=== PATIENT | male | born 1975 | race Caucasian/White ===

== ENCOUNTER 2018-12-03 12:00 | Emergency (ER) | payer BC ==
--- NOTE | 2018-12-03 12:41 | RAD REPORT ---
EXAM DESCRIPTION: RAD - Chest Single View - 12/03/2018 12:33 pm CLINICAL HISTORY: Chest pain COMPARISON: January 2018 TECHNIQUE: AP portable chest image was obtained 1232 hours . FINDINGS: Lungs are clear. Heart and vasculature are normal. No measurable pleural effusion and no p neumothorax. No acute bony abnormality seen. No acute aortic findings suspected. IMPRESSION: No acute cardiopulmonary process. No significant interval change.
[2018-12-03 12:48] LABS: Absolute Lymphocytes (CBC) 1.7 K/uL (0.7-4.9); Basophils % 0.8 % (0-1.3); Eosinophils % 1.5 % (0-4.4); Hematocrit 50.2 % (39.6-49.0); Lymphocytes % 31.3 % (15.3-44.8); MPV 8.3 fL (7.6-11.3); Monocytes % 7.7 % (3.3-12.3); RBC Red Blood Cell Count 5.38 M/uL (4.33-5.43)
[2018-12-03 13:13] LABS: ALT/SGPT 45 U/L (12-78); AST/SGOT 16 U/L (15-37); Alkaline Phosphatase 132 U/L (45-117); BUN Blood Urea Nitrogen 19 mg/dL (7-18); Bicarbonate 24 mmol/L (21-32); Bilirubin Direct 0.1 mg/dL (0-0.2); Bilirubin Total 0.5 mg/dL (0.2-1.0); Glucose Level 104 mg/dL (74-106); NT PRO-BNP 14 pg/mL (<125); Potassium 3.7 mmol/L (3.5-5.1); Protein, Total 7.4 g/dL (6.4-8.2); Sodium Level 141 mmol/L (136-145); Troponin (Emerg Dept Use Only) < 0.02 ng/mL (0.0-0.045)
--- NOTE | 2018-12-03 15:51 | ER ---
Nurse's Notes [facility] Name: Michael Bailon Age: 43 yrs Sex: Male : 1975 Arrival Date: 12/03/2018 Time: 12:01 Bed 5 Private MD: Diagnosis: Chest pain, unspecified Presentation: 12/03 12:01 Presenting complaint: Patient states: around 6:30 am today, i was sitting on my desk, hj when i felt this chest pain, sharp, tight feeling; reports radiating to back and L side of the body; pain 2/10; denies SOB;. Transition of care: patient was not received from another setting of care. Onset of symptoms was December 03, 2018. Risk Assessment: Do you want to hurt yourself or someone else? Patient reports no desire to harm self or others. Initial Sepsis Screen: Does the patient meet any 2 criteria? No. Patient's initial sepsis screen is negative. Does the patient have a suspected source of infection? No. Patient's initial sepsis screen is negative. Care prior to arrival: None. 12:01 Method Of Arrival: Ambulatory 12:01 Acuity: YARA 3 hj Historical: - Allergies: 12:03 No Known Allergies; hj - PMHx: 12:03 Migraines; hj - PSHx: 12:03 None; hj - Immunization history:: Adult Immunizations up to date. - Social history:: Smoking status: Patient/guardian denies using tobacco. - Family history:: not pertinent. - Ebola Screening: : No symptoms or risks identified at this time. - Hospitalizations: : No recent hospitalization is reported. Screenin:44 Abuse screen: Denies threats or abuse. Denies injuries from another. Nutritional hb screening: No deficits noted. Tuberculosis screening: No symptoms or risk factors identified. Fall Risk None identified. Assessment: 12:30 General: Appears in no apparent distress. well groomed, well developed, well nourished, sg Behavior is calm, cooperative, appropriate for age. Neuro: Level of Consciousness is awake, confused, Oriented to person, Speech clear. Facial symmetry appears normal. Cardiovascular: Heart tones S1 S2 Patient's skin is warm and dry. Chest pain is denied. Respiratory: Airway is patent Respiratory effort is even, unlabored, Respiratory pattern is regular, symmetrical, Breath sounds are coarse. GI: Abdomen is round non-distended, Bowel sounds present X 4 quads. : No signs and/or symptoms were reported regarding the genitourinary system. EENT: No signs and/or symptoms were reported regarding the EENT system. Derm: Skin is pink, warm \T\ dry. Musculoskeletal: No signs and/or symptoms reported regarding the musculoskeletal system. 12:43 Reassessment: pt to void x1. sg 13:30 Reassessment: Patient appears in no apparent distress at this time. No changes from hb previously documented assessment. Patient and/or family updated on plan of care and expected duration. Pain level reassessed. Patient is alert, oriented x 3, equal unlabored respirations, skin warm/dry/pink. 14:30 Reassessment: Patient appears in no apparent distress at this time. Patient and/or hb family updated on plan of care and expected duration. Pain level reassessed. Patient is alert, oriented x 3, equal unlabored respirations, skin warm/dry/pink. Vital Signs: 12:03 BP 135 / 92; Pulse 74; Resp 18; Temp 97.9(O); Pulse Ox 100% on R/A; Weight 124.28 kg; hj Height 5 ft. 11 in. (180.34 cm); Pain 3/10; 13:30 BP 128 / 86; Pulse 72; Resp 17; Pulse Ox 98% on R/A; hb 14:30 BP 116 / 85; Pulse 70; Resp 15; Pulse Ox 100% on R/A; hb 16:00 BP 114 / 84; Pulse 69; Resp 17; Pulse Ox 99% on R/A; Pain 0/10; sg 12:03 Body Mass Index 38.21 (124.28 kg, 180.34 cm) ED Course: 12:01 Patient arrived in ED. hj 12:03 Triage completed. hj 12:05 Arm band placed on right wrist. hj 12:06 Willem Soto MD is Attending Physician. rn 12:12 EKG done, by wastewater technician. reviewed by Willem Soto MD. at1 12:33 X-ray completed. Portable x-ray completed in exam room. Patient tolerated procedure jb2 well. 12:34 XRAY Chest (1 view) In Process Unspecified. EDMS 12:40 Initial lab(s) drawn, by la, sent to lab. Inserted saline lock: 20 gauge in right sg antecubital area, using aseptic technique. Blood collected. Patient maintains SpO2 saturation greater than 95% on room air. 12:43 Krishna La, RN is Primary Nurse. sg 14:25 Repeat lab(s) drawn. by ED staff, sent to lab. sg 14:40 Troponin (emerg Dept Use Only) Sent. hb 14:40 Basic Metabolic Panel Sent. hb 15:49 Esteban Corrales MD is Referral Physician. rn 16:05 Patient has correct armband on for positive identification. Bed in low position. Call sg light in reach. Side rails up X2. phototypesetting equipment monitor on. Pulse ox on. NIBP on. Warm blanket given. Head of bed elevated. 16:05 No provider procedures requiring assistance completed. IV discontinued, intact, sg bleeding controlled, No redness/swelling at site. Pressure dressing applied. Administered Medications: No medications were administered Outcome: 15:50 Discharge ordered by MD. rn 16:05 Discharged to home ambulatory. sg 16:05 Condition: good 16:05 Discharge instructions given to patient, Instructed on discharge instructions, follow up and referral plans. medication usage, safety practices, Demonstrated understanding of instructions, follow-up care, medications, Prescriptions given X 2. 16:10 Patient left the ED. Signatures: Dispatcher [employer] EDMS Krishna La, RN RN Ruel Anguiano Roman, MD MD rn Smirch, Shelby, RN RN Kathy Moore, spring clipper EKG Tat1 Chris Levy RN RN hj Lyndsey Dye RN RN hb
--- NOTE | 2018-12-03 15:51 | EDPHYS ---
Physician Documentation [facility] Name: Michael Bailon Age: 43 yrs Sex: Male : 1975 Arrival Date: 12/03/2018 Time: 12:01 Bed 5 Private MD: ED Physician Willem Soto HPI: 12/03 12:23 This 43 yrs old Male presents to ER via Ambulatory with complaints of Chest rn Pain. 12:23 The patient or guardian reports chest pain that is located primarily in the substernal rn area. 12:24 Onset: this morning. The pain does not radiate. Associated signs and symptoms: rn Pertinent negatives: abdominal pain, cough, diaphoresis, lightheadedness, nausea, near syncope, palpitations, recent travel, shortness of breath, syncope, vomiting. The chest pain is described as a heaviness. Modifying factors: The symptoms are alleviated by nothing. the symptoms are aggravated by nothing. Severity of pain: At its worst the pain was moderate in the emergency department the pain has improved. The patient has experienced similar episodes in the past. Reports intermittent chest pain, pressure/heavy, noticed this morning while at rest, no radiation, + tingling of left arm, had negative stress test 2-3 years ago, reports normally has mild sharp chest pains that come and go, but today felt different. No fever/cough/sob. No tearing/ripping pain. Takes baby aspirin daily since seeing cardiology last. No famhx of cardiac problems at his age.. Historical: - Allergies: 12:03 No Known Allergies; hj - PMHx: 12:03 Migraines; hj - PSHx: 12:03 None; hj - Immunization history:: Adult Immunizations up to date. - Social history:: Smoking status: Patient/guardian denies using tobacco. - Family history:: not pertinent. - Ebola Screening: : No symptoms or risks identified at this time. - Hospitalizations: : No recent hospitalization is reported. ROS: 12:24 Constitutional: Negative for fever, chills, and weight loss, Eyes: Negative for injury, rn pain, redness, and discharge, Neck: Negative for injury, pain, and swelling, Cardiovascular: Negative for palpitations, and edema, Respiratory: Negative for shortness of breath, cough, wheezing, and pleuritic chest pain, Abdomen/GI: Negative for abdominal pain, nausea, vomiting, diarrhea, and constipation, MS/Extremity: Negative for injury and deformity, Skin: Negative for injury, rash, and discoloration, Neuro: Negative for headache, weakness, and seizure. Exam: 12:24 Constitutional: This is a well developed, well nourished patient who is awake, alert, rn and in no acute distress. Head/Face: Normocephalic, atraumatic. Eyes: Pupils equal round and reactive to light, extra-ocular motions intact. Lids and lashes normal. Conjunctiva and sclera are non-icteric and not injected. Cornea within normal limits. Periorbital areas with no swelling, redness, or edema. ENT: MMM Cardiovascular: Regular rate and rhythm. No gallops, murmurs, or rubs. No JVD. No pulse deficits. Respiratory: Lungs have equal breath sounds bilaterally, clear to auscultation. No increased work of breathing, no retractions or nasal flaring. Abdomen/GI: soft, non-tender MS/ Extremity: Pulses equal, no cyanosis. Neurovascular intact. Full, normal range of motion. Equal circumference. Neuro: Awake and alert, GCS 15, normal ROM of extremities and normal strength 12:28 ECG was reviewed by the Attending Physician. rn Vital Signs: 12:03 BP 135 / 92; Pulse 74; Resp 18; Temp 97.9(O); Pulse Ox 100% on R/A; Weight 124.28 kg; hj Height 5 ft. 11 in. (180.34 cm); Pain 3/10; 13:30 BP 128 / 86; Pulse 72; Resp 17; Pulse Ox 98% on R/A; hb 14:30 BP 116 / 85; Pulse 70; Resp 15; Pulse Ox 100% on R/A; hb 16:00 BP 114 / 84; Pulse 69; Resp 17; Pulse Ox 99% on R/A; Pain 0/10; sg 12:03 Body Mass Index 38.21 (124.28 kg, 180.34 cm) hj MDM: 12:06 Patient medically screened. rn 14:15 Differential diagnosis: acute myocardial infarction, acute pericarditis, anxiety, rn coronary artery disease chest wall pain, costochondritis, esophagitis, gastritis, gastroesophageal reflux disease (GERD), pericarditis, pleurisy, pneumonia, pneumothorax, stable angina. The patient was not given aspirin in the Emergency Department. Patient reports taking aspirin within the past 24 hours. STEVE Risk Score: 1 - ASA use in past 7 days, TOTAL SCORE = 1. Data reviewed: vital signs, nurses notes, lab test result(s), EKG, radiologic studies, plain films. Counseling: I had a detailed discussion with the patient and/or guardian regarding: the historical points, exam findings, and any diagnostic results supporting the discharge/admit diagnosis, lab results, radiology results, the need for outpatient follow up, to return to the emergency department if symptoms worsen or persist or if there are any questions or concerns that arise at home. Special discussion: Based on the patient's history, exam, and Dx evaluation, there is no indication for emergent intervention or inpatient Tx. It is understood by the patient/guardian that if the Sx's persist or worsen they need to return immediately for re-evaluation. I discussed with the patient/guardian in detail that at this point there is no indication for admission to the hospital. It is understood, however, that if the symptoms persist or worsen the patient needs to return immediately for re-evaluation. ED course: No further episodes of chest pain while here, first set trop and ECG normal, will repeat and will make them 8 hours after onset. Has seen Dr. Corrales in past, recommend if repeat trop and ecg normal to f/u as outpt for outpt ECHO/stress and further risk stratification.. 15:49 ED course: repeat trop and ecg negative, will dc home. Is calling for cardiology appt rn today.. 12/03 12:23 Order name: Basic Metabolic Panel rn 12/03 12:23 Order name: CBC with Diff; Complete Time: 13:05 rn 12/03 12:23 Order name: LFT's; Complete Time: 14:04 rn 12/03 12:23 Order name: NT PRO-BNP; Complete Time: 14:04 rn 12/03 12:23 Order name: Troponin (emerg Dept Use Only); Complete Time: 14:04 rn 12/03 12:23 Order name: D-Dimer; Complete Time: 14:04 rn 12/03 12:23 Order name: XRAY Chest (1 view); Complete Time: 12:44 rn 12/03 12:23 Order name: EKG; Complete Time: 12:26 rn 12/03 12:23 Order name: Cardiac monitoring; Complete Time: 12:24 rn 12/03 12:23 Order name: EKG - Nurse/Tech; Complete Time: 12:42 rn 12/03 12:23 Order name: IV Saline Lock; Complete Time: 12:24 rn 12/03 12:25 Order name: Basic Metabolic Panel; Complete Time: 14:04 EDMS 12/03 14:13 Order name: Troponin (emerg Dept Use Only); Complete Time: 15:49 rn 12/03 14:14 Order name: EKG; Complete Time: 14:15 rn 12/03 12:23 Order name: Labs collected and sent; Complete Time: 12:24 rn 12/03 12:23 Order name: O2 Per Protocol; Complete Time: 12:24 rn 12/03 12:23 Order name: O2 Sat Monitoring; Complete Time: 12:25 rn 12/03 14:14 Order name: EKG - Nurse/Tech; Complete Time: 14:39 rn EC:28 Rate is 81 beats/min. Rhythm is regular. QRS [place] is Normal. AL interval is normal. QRS rn interval is normal. QT interval is normal. T waves are Normal. No ST changes noted. Clinical impression: NSR w/ Non-specific ST/T Changes and LVH. Interpreted by me. Reviewed by me. Administered Medications: No medications were administered Disposition: 12/03/18 15:50 Discharged to Home. Impression: Chest pain, unspecified. - Condition is Stable. - Discharge Instructions: Nonspecific Chest Pain. - Work release form, Medication Reconciliation Form, Thank You Letter, Antibiotic Education, Prescription Opioid Use form. - Follow up: Esteban Corrales MD; When: As needed; Reason: Recheck today's complaints, Re-evaluation by your physician. - Problem is new. - Symptoms have improved. Signatures: Dispatcher [employer] EDAL Willem Soto MD MD rn Smirch, Shelby, RN RN Chris Levy RN RN Lyndsey Dye RN RN Corrections: (The following items were deleted from the chart) 16:10 15:50 12/03/2018 15:50 Discharged to Home. Impression: Chest pain, unspecified. ss Condition is Stable. Forms are Medication Reconciliation Form, Thank You Letter, Antibiotic Education, Prescription Opioid Use. Follow up: Esteban Corrales; When: As needed; Reason: Recheck today's complaints, Re-evaluation by your physician. Problem is new. Symptoms have improved. rn
--- NOTE | 2018-12-04 14:51 | EKG ---
Test Date: 2018-12-03 Test Time: 14:37:05 Machine Package Sealer: VIN MEASUREMENT RESULTS: Intervals: Rate: 65 WA: 164 QRSD: 100 QT: 396 QTc: 411 [place]: P: 36 WA: 164 QRS: -15 T: 17 INTERPRETIVE STATEMENTS: Normal sinus rhythm Minimal voltage criteria for LVH, may be normal variant Borderline ECG Compared to ECG 12/03/2018 12:08:28 No significant changes Electronically Signed On 12-04-18 14:47:36 CDT by Esteban Corrales
--- NOTE | 2018-12-04 14:52 | EKG ---
Test Date: 2018-12-03 Test Time: 12:08:28 Associate Director Financial Aid: VIN MEASUREMENT RESULTS: Intervals: Rate: 81 ND: 156 QRSD: 100 QT: 382 QTc: 443 [place]: P: 43 ND: 156 QRS: -15 T: 18 INTERPRETIVE STATEMENTS: Normal sinus rhythm Minimal voltage criteria for LVH, may be normal variant Borderline ECG Compared to ECG 01/12/2018 17:16:31 Left ventricular hypertrophy now present Electronically Signed On 12-04-18 14:47:42 CDT by Esteban Corrales
== END 2018-12-03 16:10 | disposition home or self-care (01) ==
LOC: ER 12:00
DX: R07.9 Chest pain, unspecified (principal); Z79.82 Long term (current) use of aspirin
CPT/HCPCS: 36415; 71045; 80048; 80076; 83880; 84484; 85025; 85379; 93005; 99285

== ENCOUNTER 2020-03-11 15:24 | Emergency (ER) | payer BC ==
[2020-03-11 16:31] LABS: Absolute Lymphocytes (CBC) 2.2 K/uL (0.7-4.9); Basophils % 0.6 % (0-1.3); Hematocrit 40.7 % (39.6-49.0); Lymphocytes % 32.7 % (15.3-44.8); MPV 8.4 fL (7.6-11.3); RBC Red Blood Cell Count 4.44 M/uL (4.33-5.43)
[2020-03-11 16:47] LABS: ALT/SGPT 46 U/L (12-78); AST/SGOT 17 U/L (15-37); Albumin 3.6 g/dL (3.4-5.0); Alkaline Phosphatase 113 U/L (45-117); BUN Blood Urea Nitrogen 13 mg/dL (7-18); Bicarbonate 26 mmol/L (21-32); Bilirubin Direct < 0.1 mg/dL (0-0.2); Bilirubin Total 0.3 mg/dL (0.2-1.0); Glucose Level 124 mg/dL (74-106); Lipase 110 U/L (73-393); Potassium 3.4 mmol/L (3.5-5.1); Protein, Total 7.5 g/dL (6.4-8.2); Sodium Level 141 mmol/L (136-145)
[2020-03-11 16:48] LABS: Urine Bacteria <20 /HPF (NONE SEEN); Urine Culture Reflex Order NOT NEEDED; Urine RBC <5 /HPF (NONE SEEN)
--- NOTE | 2020-03-11 16:55 | RAD REPORT ---
EXAM DESCRIPTION: US - Abdomen Exam Limited - 03/11/2020 4:31 pm CLINICAL HISTORY: ABD PAIN COMPARISON: No comparisons FINDINGS: Gallbladder is contracted. Patient was not fasting for the examination and ate approximate ly 2 hours prior to the study. No gallstones or measurable quantity of sludge seen. There is no wall thickening or pericholecystic fluid. No common duct stone or biliary tree dilatation identified. IMPRESSION: Contracted gallbladder showing no acute finding. Patient was not fasting for the examina tion. No biliary tree abnormality.
--- NOTE | 2020-03-11 17:08 | RAD REPORT ---
EXAM DESCRIPTION: CT - Stone Protocol - 03/11/2020 4:45 pm CLINICAL HISTORY: FLANK PAIN COMPARISON: No comparisons TECHNIQUE: Axial 3 mm thick images were obtained without oral or IV contrast. The [id number] span s the entirety of the system including uppermost abdomen and lung bases. All CT scans are performed using dose optimization technique as appropriate and may include automated exposure control or mA/KV adjustment according to patient size. FINDINGS: No hydronephrosis is present and no obstructing ureteral calculi. No suspicious renal mass es. Isodense masses and pyelonephritis are not excluded on a stone protocol CT scan. No significant a drenal finding. No urinary bladder suspicious finding. Liver is borderline to mildly fatty infiltrated. There is a 3.6 centimeter septated cyst or cyst clus ter in the posterior right lobe. A few additional small cystic areas are seen. The cysts appear to be benign but full characterization cannot be made on a noncontrast study. Spleen and pancreas show no suspicious findings peer gallbladder is contracted. There is a large amount of fluid present in the s tomach which would explain the contracted state of the gallbladder. No biliary tree dilatation. No suspicious bowel findings. Appendix is normal. No active GI process seen. No mass or bulky lymphadenopathy. Bilateral fat filled inguinal hernias are present. No free air, essence e fluid or inflammatory stranding. No significant bony abnormality. IMPRESSION: Gallbladder is contracted, not unexpected for a non fasting patient. No biliary tree dil atation. Cysts are present in a fatty infiltrated liver. No worrisome liver finding identifiable. Isodense masses and pyelonephritis are not excluded on stone protocol technique.
--- NOTE | 2020-03-11 17:27 | EDPHYS ---
Physician Documentation [facility] Name: Michael Bailon Age: 44 yrs Sex: Male : 1975 Arrival Date: 03/11/2020 Time: 15:26 Bed 19 Private MD: ED Physician Skip Mondragon HPI: 03/11 15:48 This 44 yrs old Male presents to ER via Ambulatory with complaints of cp Abdominal Pain, Side Pain. 15:48 The patient presents with abdominal pain in the right upper quadrant. cp 15:48 Onset: The symptoms/episode began/occurred 2 day(s) ago. cp 15:48 Associated signs and symptoms: Pertinent negatives: nausea, vomiting, and diarrhea, cp anorexia, chest pain, constipation, dysuria, fever, palpitations. The symptoms are described as intermittent, stabbing. Modifying factors: the symptoms are aggravated by unknown. Severity of pain: At its worst the pain was a 8 / 10. Historical: - Allergies: 15:40 watermelon flavor (bulk); ll1 15:40 melons; ll1 15:40 cantaloupe; ll1 - PMHx: 15:40 Migraines; ll1 - PSHx: 15:40 None; ll1 - Immunization history:: Flu vaccine is up to date. - Social history:: Smoking status: Patient denies any tobacco usage or history of. ROS: 15:50 Constitutional: Negative for body aches, chills, fever. cp 15:50 Cardiovascular: Negative for chest pain. 15:50 Respiratory: Negative for cough, shortness of breath, wheezing. 15:50 Abdomen/GI: Positive for abdominal pain, of the right upper quadrant. 15:50 Back: Positive for flank pain, on the right, Negative for injury or acute deformity. 15:50 Skin: Negative for rash. 15:50 Neuro: Negative for altered mental status, headache, weakness. 15:50 All other systems are negative. Exam: 15:55 Constitutional: The patient appears in no acute distress, alert, awake, non-toxic, well cp developed, well nourished. 15:55 Head/Face: Normocephalic, atraumatic. cp 15:55 Eyes: Periorbital structures: appear normal, Conjunctiva: normal, no exudate, no cp injection, Sclera: no appreciated abnormality, Lids and lashes: appear normal, bilaterally. 15:55 ENT: External ear(s): are unremarkable, Nose: is normal, Posterior pharynx: Airway: no cp evidence of obstruction, patent. 15:55 Chest/axilla: Inspection: normal, Palpation: is normal, no crepitus, no tenderness. 15:55 Cardiovascular: Rate: normal, Rhythm: regular. 15:55 Respiratory: the patient does not display signs of respiratory distress, Respirations: normal, no use of accessory muscles, no retractions, labored breathing, is not present, Breath sounds: are clear throughout, no decreased breath sounds, no stridor, no wheezing. 15:55 Abdomen/GI: Inspection: abdomen appears normal, Bowel sounds: active, all quadrants, Palpation: soft, in all quadrants, mild abdominal tenderness, in the anterior aspect of right lateral abdomen, posterior aspect of right lateral abdomen and right upper quadrant, rebound tenderness, is not appreciated, voluntary guarding, is elicited in the anterior aspect of right lateral abdomen, posterior aspect of right lateral abdomen and right upper quadrant. 15:55 Back: CVA tenderness, is absent. 15:55 Skin: cellulitis, is not appreciated, no rash present. Vital Signs: 15:38 BP 128 / 88; Pulse 88; Resp 18; Temp 98.1; Pulse Ox 99% on R/A; Pain 8/10; ll1 17:24 BP 127 / 78; Pulse 76; Resp 18; Temp 97.4; Pulse Ox 99% on R/A; ph MDM: 15:36 Patient medically screened. cp 16:00 Differential diagnosis: cholecystitis, Cholelithiasis, non-specific abd pain, cp pancreatitis, Pyelonephritis, Ureterolithiasis, urinary tract infection, herpes zoster. 17:25 Data reviewed: vital signs, nurses notes, lab test result(s), radiologic studies, CT cp scan, ultrasound. 17:25 Counseling: I had a detailed discussion with the patient and/or guardian regarding: the cp historical points, exam findings, and any diagnostic results supporting the discharge/admit diagnosis, lab results, radiology results, to return to the emergency department if symptoms worsen or persist or if there are any questions or concerns that arise at home. Response to treatment: the patient's symptoms have mildly improved after treatment. Special discussion: Based on the patient's Hx, exam, and Dx evaluation, there is no indication for emergent surgery or inpatient Tx. It is understood by the patient/guardian that if the Sx's persist or worsen they need to return immediately for re-evaluation. ED course: VSS. Discussed results of labs and radiology studies that were negative for acute findings. Cause of pain unclear at this time. Will discharge to home for continued monitoring. Has appt with PCP tomorrow. 03/11 15:37 Order name: Basic Metabolic Panel; Complete Time: 17:15 cp 03/11 17:18 Interpretation: Normal except: K 3.4; CL 109; GLUC 124; GFR 87; CA 8.4. 03/11 15:37 Order name: CBC with Diff; Complete Time: 17:15 cp 03/11 15:37 Order name: Hepatic Function; Complete Time: 17:15 cp 03/11 17:16 Interpretation: Normal except: GLOB 3.9; A/G 0.9. 03/11 15:37 Order name: Lipase; Complete Time: 17:15 cp 03/11 15:37 Order name: Urine Microscopic Only; Complete Time: 17:15 cp 03/11 16:07 Order name: Urine Dipstick--Ancillary (enter results) mt 03/11 15:37 Order name: IV Saline Lock; Complete Time: 16:53 cp 03/11 15:37 Order name: Labs collected and sent; Complete Time: 16:53 cp 03/11 15:37 Order name: US Abdomen Limited: RUQ; Complete Time: 17:15 cp 03/11 15:37 Order name: Urine Dipstick-Ancillary (obtain specimen); Complete Time: 16:53 cp 03/11 16:33 Order name: CT Stone Protocol; Complete Time: 17:15 cp Administered Medications: 17:24 Drug: TORadol - Ketorolac 15 mg Route: IVP; Site: right antecubital; ph 17:24 Follow up: Response: No adverse reaction ph 17:24 Not Given (Other Intervention Used): NS 0.9% 1000 ml IV at 1 bolus Per protocol; 1000 ph mL bolus Disposition: 18:00 Chart complete. cp Disposition: 03/11/20 17:25 Discharged to Home. Impression: Upper abdominal pain, unspecified. - Condition is Stable. - Discharge Instructions: Abdominal Pain, Adult. - Prescriptions for Ibuprofen 800 mg Oral Tablet - take 1 tablet by ORAL route every 8 hours As needed take with food; 30 tablet. - Medication Reconciliation Form, Thank You Letter, Antibiotic Education, Prescription Opioid Use form. - Follow up: Private Physician; When: 1 - 2 days; Reason: Recheck today's complaints. - Problem is new. - Symptoms have improved. - Notes: Talk to physician about performing possible HIDA scan Addendum: 03/13/2020 09:02 Co-signature as Attending Physician, Skip Mondragon MD I agree with the assessment and k dr plan of care. Signatures: Dispatcher [employer] EDDE Skip Mondragon MD MD [facility] Adrienne Springer RN RN ph Twan Monique PA PA cp Apolinar Allen RN RN ll1 Corrections: (The following items were deleted from the chart) 03/11 16:01 15:57 The patient presents with abdominal pain in the right upper quadrant, right flank cp cp 16:01 15:57 Onset: The symptoms/episode began/occurred 2 day(s) ago, cp cp 16: 15:57 This 44 yrs old Male presents to ER via Ambulatory with complaints of cp Abdominal Pain, Side Pain. cp 17:18 17:16 Normal except: K 3.4; CL 109; GLUC 124; GFR 87. cp cp 17:53 17:25 03/11/2020 17:25 Discharged to Home. Impression: Upper abdominal pain, ph unspecified. Condition is Stable. Forms are Medication Reconciliation Form, Thank You Letter, Antibiotic Education, Prescription Opioid Use. Follow up: Private Physician; When: 1 - 2 days; Reason: Recheck today's complaints. Problem is new. Symptoms have improved. cp
--- NOTE | 2020-03-11 17:27 | ER ---
Nurse's Notes [facility] Name: Michael Bailon Age: 44 yrs Sex: Male : 1975 Arrival Date: 03/11/2020 Time: 15:26 Bed 19 Private MD: Diagnosis: Upper abdominal pain, unspecified Presentation: 03/11 15:38 Chief complaint: Patient states: RUQ pain to skin that wraps around to right mid back ll1 for 2 days. Denies fever. No N/V/D. Coronavirus screen: Client denies travel out of the [place] in the last 14 days. At this time, the client does not indicate any symptoms associated with coronavirus-19. Ebola Screen: Patient denies travel to an Ebola-affected area in the 21 days before illness onset. Initial Sepsis Screen: Does the patient meet any 2 criteria? No. Patient's initial sepsis screen is negative. Risk Assessment: Do you want to hurt yourself or someone else? Patient reports no desire to harm self or others. Onset of symptoms was March 09, 2020. 15:38 Method Of Arrival: Ambulatory ll1 15:38 Acuity: YARA 3 ll1 17:53 Initial Sepsis Screen: Does the patient have a suspected source of infection? No. ph Patient's initial sepsis screen is negative. Historical: - Allergies: 15:40 watermelon flavor (bulk); ll1 15:40 melons; ll1 15:40 cantaloupe; ll1 - PMHx: 15:40 Migraines; ll1 - PSHx: 15:40 None; ll1 - Immunization history:: Flu vaccine is up to date. - Social history:: Smoking status: Patient denies any tobacco usage or history of. Screenin:55 Abuse screen: Denies threats or abuse. Denies injuries from another. Nutritional ph screening: No deficits noted. Tuberculosis screening: No symptoms or risk factors identified. Fall Risk None identified. Assessment: 16:00 General: Appears in no apparent distress. comfortable, well groomed, Behavior is calm, ph cooperative, appropriate for age, Denies fever, feeling ill. Pain: Complains of pain in right upper quadrant Pain radiates to right subscapular area Quality of pain is described as burning, sharp, stabbing. Neuro: Level of Consciousness is awake, alert, obeys commands, Oriented to person, place, time, situation. Cardiovascular: Capillary refill < 3 seconds in bilateral fingers Patient's skin is warm and dry. Respiratory: Airway is patent Respiratory effort is even, unlabored, Respiratory pattern is regular, symmetrical. GI: Abdomen is round non-distended, Patient currently denies diarrhea, nausea, vomiting. : Denies burning with urination, inability to void. Derm: Skin is intact, is healthy with good turgor, Skin is pink, warm \T\ dry. Musculoskeletal: Circulation, motion, and sensation intact. Range of motion: intact in all extremities. 17:00 Reassessment: Patient appears in no apparent distress at this time. Patient and/or ph family updated on plan of care and expected duration. Pain level reassessed. Patient is alert, oriented x 3, equal unlabored respirations, skin warm/dry/pink. 17:52 Reassessment: Patient appears in no apparent distress at this time. Patient and/or ph family updated on plan of care and expected duration. Pain level reassessed. Patient is alert, oriented x 3, equal unlabored respirations, skin warm/dry/pink. Vital Signs: 15:38 BP 128 / 88; Pulse 88; Resp 18; Temp 98.1; Pulse Ox 99% on R/A; Pain 8/10; ll1 17:24 BP 127 / 78; Pulse 76; Resp 18; Temp 97.4; Pulse Ox 99% on R/A; ph ED Course: 15:26 Patient arrived in ED. ds1 15:30 Twan Monique PA is PHCP. cp 15:30 Skip Mondragon MD is Attending Physician. cp 15:38 Apolinar Allen, GRACIA is Primary Nurse. ll1 15:39 Triage completed. ll1 15:40 Arm band placed on Patient placed in an exam room, on a stretcher. ll1 16:00 Inserted saline lock: 20 gauge in right antecubital area, using aseptic technique. ph 16:32 US Abdomen Limited: RUQ In Process Unspecified. EDMS 16:46 CT Stone Protocol In Process Unspecified. EDMS 16:55 Patient has correct armband on for positive identification. Bed in low position. Call ph light in reach. Side rails up X 1. Pulse ox on. NIBP on. Door closed. Noise minimized. 17:52 No provider procedures requiring assistance completed. IV discontinued, intact, ph bleeding controlled, No redness/swelling at site. Pressure dressing applied. Administered Medications: 17:24 Drug: TORadol - Ketorolac 15 mg Route: IVP; Site: right antecubital; ph 17:24 Follow up: Response: No adverse reaction ph 17:24 Not Given (Other Intervention Used): NS 0.9% 1000 ml IV at 1 bolus Per protocol; 1000 ph mL bolus Outcome: 17:25 Discharge ordered by MD. cp 17:53 Discharged to home ambulatory. ph 17:53 Condition: good 17:53 Discharge instructions given to patient, Instructed on discharge instructions, follow up and referral plans. medication usage, Demonstrated understanding of instructions, follow-up care, medications, Prescriptions given X 1. 17:53 Patient left the ED. ph Signatures: Dispatcher [employer] [facility] Silvia Cool ds1 Adrienne Springer, RN RN ph Twan Monique PA PA cp Lewis, Lynsay RN RN ll1
[2020-03-11] MEDS ORDERED: KETOROLAC 30 MG/ML INJ ONE (17:32)
[2020-03-11 18:03] VITALS: O2SAT 99
[2020-03-11 18:04] VITALS: BP 127/78; TEMP 97.4
[2020-03-11 20:12] LABS: Urine Blood TRACE (NEG); Urine Glucose NEGATIVE (NEG); Urine Protein NEGATIVE (NEG); Urine Specific Gravity 1.015 (1.005-1.030)
== END 2020-03-11 17:53 | disposition home or self-care (01) ==
LOC: ER 15:24
DX: R10.11 Right upper quadrant pain (principal); Z91.018 Allergy to other foods
CPT/HCPCS: 36415; 74176; 76377; 76705; 80048; 80076; 81003; 81015; 83690; 85025; 96374; 99284

== ENCOUNTER 2020-08-03 11:17 | Observation (INO) | payer BC ==
--- NOTE | 2020-08-03 12:32 | RAD REPORT ---
EXAM DESCRIPTION: RAD - Chest Single View - 08/03/2020 12:25 pm CLINICAL HISTORY: CHEST PAIN Chest pain. COMPARISON: Chest Pa And Lat (2 Views) dated 05/14/2020; Chest Single View dated 12/03/2018; Chest Pa And Lat (2 Views) dated 01/12/2018; Chest Pa And Lat (2 Views) dated 05/12/2017 FINDINGS: Portable technique limits examination quality. The lungs are grossly clear. The heart is normal in size. No displaced fractures. IMPRESSION: No acute intrathoracic process suspected.
[2020-08-03 12:36] LABS: Absolute Lymphocytes (CBC) 1.3 K/uL (0.7-4.9); Basophils % 0.5 % (0-1.3); Lymphocytes % 17.6 % (15.3-44.8); MPV 8.5 fL (7.6-11.3); RBC Red Blood Cell Count 4.86 M/uL (4.33-5.43)
[2020-08-03 12:37] LABS: Protime INR 0.98
[2020-08-03] MEDS ORDERED: MORPHINE 2 MG/ML SYR ONE ×2 (12:43→20:06)
[2020-08-03] MEDS ORDERED: ASPIRIN 81 MG CHEWABLE TABLET ONE (12:43)
[2020-08-03 12:57] LABS: ALT/SGPT 38 U/L (12-78); AST/SGOT 14 U/L (15-37); Albumin 3.8 g/dL (3.4-5.0); Alkaline Phosphatase 113 U/L (45-117); BUN Blood Urea Nitrogen 15 mg/dL (7-18); Bicarbonate 24 mmol/L (21-32); Bilirubin Direct 0.1 mg/dL (0-0.2); Bilirubin Total 0.5 mg/dL (0.2-1.0); Glucose Level 97 mg/dL (74-106); Magnesium 2.3 mg/dL (1.8-2.4); NT PRO-BNP 29 pg/mL (<125); Potassium 3.6 mmol/L (3.5-5.1); Protein, Total 7.2 g/dL (6.4-8.2); Sodium Level 141 mmol/L (136-145); Troponin (Emerg Dept Use Only) < 0.02 ng/mL (0.0-0.045)
--- NOTE | 2020-08-03 13:15 | ER ---
Nurse's Notes [facility] Name: Michael Bailon Age: 44 yrs Sex: Male : 1975 Arrival Date: 08/03/2020 Time: 11:20 Bed 25 Private MD: Jaye Viramontes Diagnosis: Chest pain, unspecified Presentation: 08/03 11:27 Chief complaint: Patient states: chest pain last night at 11 pm, pain radiated into iw back through is shoulder blades, has been seen by cardiology and had stress testes done and were all negative, thought maybe he pulled muscle , pain was mild today went to doctor and was told he had decreased air movement in right lower lung and wanted him to have CXR done. Coronavirus screen: At this time, the client does not indicate any symptoms associated with coronavirus-19. Ebola Screen: Patient negative for fever greater than or equal to 101.5 degrees Fahrenheit, and additional compatible Ebola Virus Disease symptoms Patient denies exposure to infectious person. Patient denies travel to an Ebola-affected area in the 21 days before illness onset. No symptoms or risks identified at this time. Initial Sepsis Screen: Does the patient meet any 2 criteria? No. Patient's initial sepsis screen is negative. Does the patient have a suspected source of infection? No. Patient's initial sepsis screen is negative. Risk Assessment: Do you want to hurt yourself or someone else?. Onset of symptoms was August 02, 2020. 11:27 Method Of Arrival: Ambulatory iw 11:27 Acuity: YARA 3 iw Historical: - Allergies: 11:31 Cantaloupe; iw 11:31 melons; iw 11:31 watermelon flavor (bulk); iw - Home Meds: 11:31 Trokendi XR oral oral [Active]; pantoprazole 20 mg oral TbEC 1 tab once daily [Active]; iw - PMHx: 11:31 Migraines; Sleep Apnea; iw - PSHx: 11:31 None; iw - Immunization history:: Adult Immunizations up to date. - Social history:: Smoking status: Patient/guardian denies using tobacco, but has a distant history of tobacco abuse. Screenin:04 Abuse screen: Denies threats or abuse. Nutritional screening: No deficits noted. ll1 Tuberculosis screening: No symptoms or risk factors identified. Fall Risk IV access (20 points). Total Maya Fall Scale indicates No Risk (0-24 pts). Assessment: 12:30 General: Appears in no apparent distress. Behavior is calm, cooperative, appropriate ll1 for age. Pain: Complains of pain in chest Pain does not radiate. Pain currently is 8 out of 10 on a pain scale. Quality of pain is described as pressure, Pain began 1 day ago. Neuro: No deficits noted. Cardiovascular: Reports chest pain, Heart tones S1 S2 Capillary refill < 3 seconds Clubbing of nail beds is absent Patient's skin is warm and dry. Pulses are all present. Respiratory: No deficits noted. 13:30 Reassessment: No changes from previously documented assessment. Patient and/or family ll1 updated on plan of care and expected duration. Pain level reassessed. Vital Signs: 11:27 BP 126 / 93; Pulse 80; Resp 16; Temp 98.8; Pulse Ox 99% on R/A; Weight 116.57 kg; iw Height 5 ft. 10 in. (177.80 cm); 13:01 BP 131 / 78 LA; Pulse 63; ll1 13:02 BP 116 / 83 RA; Pulse 73; ll1 14:15 BP 143 / 82; Pulse 85; Resp 17; ll1 15:00 BP 108 / 85; Pulse 74; Resp 16; Pulse Ox 100% on R/A; vg1 16:00 BP 121 / 82; Pulse 66; Resp 16; Pulse Ox 100% on R/A; vg1 17:00 BP 105 / 73; Pulse 59; Resp 14; Pulse Ox 100% on R/A; vg1 18:00 BP 121 / 86; Pulse 70; Resp 18; Pulse Ox 100% on R/A; vg1 19:00 BP 120 / 88; Pulse 64; Resp 16; Pulse Ox 100% on R/A; vg1 20:00 BP 110 / 82; Pulse 68; Resp 16; Pulse Ox 100% on R/A; vg1 21:00 BP 127 / 97; Pulse 82; Resp 18; Pulse Ox 100% on R/A; vg1 11:27 Body Mass Index 36.88 (116.57 kg, 177.80 cm) iw ED Course: 11:20 Patient arrived in ED. mr 11:20 Jaye Viramontes is Private Physician. mr 11:29 Triage completed. iw 11:31 Arm band placed on. iw 12:01 Twan Monique PA is PHCP. cp 12:01 Willem Soto MD is Attending Physician. cp 12:25 XRAY Chest (1 view) In Process Unspecified. EDMS 12:32 Ann Thomas, RN is Primary Nurse. iw 12:45 COVID-19 : Document "Date of Symptom Onset" if Symptomatic. Sent. [facility] 12:45 Troponin (emerg Dept Use Only) Sent. [facility] 12:46 Patient has correct armband on for positive identification. Bed in low position. Call [facility] light in reach. Side rails up X 1. instrument person on. Pulse ox on. NIBP on. 12:46 Initial lab(s) drawn, by me, sent to lab. EKG done, by ED staff, reviewed by Twan Monique [facility] YAMILET COVID swab sent to lab. Inserted saline lock: 20 gauge in right antecubital area, using aseptic technique. Blood collected. 13:04 No provider procedures requiring assistance completed. Patient maintains SpO2 ll1 saturation greater than 95% on room air. 13:14 Clarence Soto MD is Hospitalizing Provider. cp 15:09 Repeat lab(s) drawn. by me, sent to lab. jp3 20:28 Primary Nurse role handed off by Ann Thomas, GRACIA ar 21:33 Sarina Henriquez RN is Primary Nurse. vg1 21:42 Patient admitted, IV remains in place. vg1 Administered Medications: 12:32 Drug: Aspirin Chewable Tablet 324 mg Route: PO; ll1 13:02 Follow up: Response: No adverse reaction; RASS: Alert and Calm (0) ll1 12:32 Drug: morphine 2 mg {Note: RASS 0.} Route: IVP; Site: right antecubital; ll1 13:02 Follow up: Response: No adverse reaction; Pain is decreased; RASS: Alert and Calm (0) ll1 Outcome: 13:15 Decision to Hospitalize by Provider. cp 21:42 Admitted to Med/surg accompanied by tech, via wheelchair, room 426, with chart, Report vg1 called to GRACIA Sanders 21:42 Condition: stable 21:42 Instructed on the need for admit. 21:49 Patient left the ED. vg1 Signatures: Dispatcher [employer] EDFL Mel Quinonez Irene, RN RN iw Twan Monique PA PA cp Martinez, Maria 5 Candelario Rutherford 3 Chanel Moya ar5 Sarina Henriquez, RN RN vg1 Apolinar Allen, GRACIA RN ll1
--- NOTE | 2020-08-03 13:15 | EDPHYS ---
Physician Documentation [facility] Name: Michael Bailon Age: 44 yrs Sex: Male : 1975 Arrival Date: 08/03/2020 Time: 11:20 Bed 25 Private MD: Jaye Viramontes ED Physician Willem Soto HPI: 08/03 12:12 This 44 yrs old Male presents to ER via Ambulatory with complaints of Chest cp Pain. 12:12 The patient or guardian reports chest pain that is located primarily in the anterior cp chest wall. 12:12 Onset: last night, at 23:00. The pain radiates to the scapula on both sides. Associated cp signs and symptoms: Pertinent negatives: abdominal pain, cough, diaphoresis, lower extremity pain, lower extremity swelling, nausea, palpitations, shortness of breath, syncope, vomiting. The chest pain is described as a pressure, squeezing. Duration: The patient or guardian reports multiple episodes, that wax and wane. Modifying factors: The symptoms are alleviated by nothing. the symptoms are aggravated by nothing. Severity of pain: in the emergency department the pain has improved moderately. Historical: - Allergies: 11:31 Cantaloupe; iw 11:31 melons; iw 11:31 watermelon flavor (bulk); iw - Home Meds: 11:31 Trokendi XR oral oral [Active]; pantoprazole 20 mg oral TbEC 1 tab once daily [Active]; iw - PMHx: 11:31 Migraines; Sleep Apnea; iw - PSHx: 11:31 None; iw - Immunization history:: Adult Immunizations up to date. - Social history:: Smoking status: Patient/guardian denies using tobacco, but has a distant history of tobacco abuse. ROS: 12:20 Constitutional: Negative for body aches, chills, fever, poor PO intake. cp 12:20 Eyes: Negative for injury, pain, redness, and discharge. cp 12:20 ENT: Negative for ear pain, sore throat, difficulty swallowing, difficulty handling secretions. 12:20 Cardiovascular: Positive for chest pain, Negative for edema, palpitations. 12:20 Respiratory: Negative for cough, shortness of breath, wheezing. 12:20 Abdomen/GI: Negative for abdominal pain, nausea, vomiting, and diarrhea. 12:20 Back: Positive for radiated pain. 12:20 Skin: Negative for cellulitis, rash. 12:20 Neuro: Negative for altered mental status, dizziness, syncope, weakness. 12:20 All other systems are negative. Exam: 12:12 ECG was reviewed by the Attending Physician. cp 12:25 Constitutional: The patient appears in no acute distress, alert, awake, cp non-diaphoretic, non-toxic, well developed, well nourished, obese. 12:25 Head/Face: Normocephalic, atraumatic. cp 12:25 Eyes: Periorbital structures: appear normal, Conjunctiva: normal, no exudate, no injection, Sclera: no appreciated abnormality, Lids and lashes: appear normal, bilaterally. 12:25 ENT: External ear(s): are unremarkable, Nose: is normal, Mouth: Lips: moist, Posterior pharynx: Airway: no evidence of obstruction, patent. 12:25 Neck: ROM/movement: is normal, is supple, without pain, no range of motions limitations, no nuchal rigidity. 12:25 Chest/axilla: Inspection: normal, Palpation: is normal, no crepitus, no tenderness. 12:25 Cardiovascular: Rate: normal, Rhythm: regular, Pulses: Pulses are 2+ in right radial artery and left radial artery. Edema: is not appreciated, JVD: is not appreciated. 12:25 Respiratory: the patient does not display signs of respiratory distress, Respirations: normal, no use of accessory muscles, no retractions, labored breathing, is not present, Breath sounds: are clear throughout, no decreased breath sounds, no stridor, no wheezing. 12:25 Abdomen/GI: Inspection: abdomen appears normal, Palpation: abdomen is soft and non-tender, in all quadrants. 12:25 Back: CVA tenderness, is absent, vertebral tenderness, is not appreciated. 12:25 Skin: no rash present. 12:25 Neuro: Orientation: to person, place \\T\\ time. Mentation: is normal, Cerebellar function: is grossly normal, Motor: moves all fours, strength is normal, Sensation: is normal. Vital Signs: 11:27 BP 126 / 93; Pulse 80; Resp 16; Temp 98.8; Pulse Ox 99% on R/A; Weight 116.57 kg; iw Height 5 ft. 10 in. (177.80 cm); 13:01 BP 131 / 78 LA; Pulse 63; ll1 13:02 BP 116 / 83 RA; Pulse 73; ll1 14:15 BP 143 / 82; Pulse 85; Resp 17; ll1 15:00 BP 108 / 85; Pulse 74; Resp 16; Pulse Ox 100% on R/A; vg1 16:00 BP 121 / 82; Pulse 66; Resp 16; Pulse Ox 100% on R/A; vg1 17:00 BP 105 / 73; Pulse 59; Resp 14; Pulse Ox 100% on R/A; vg1 18:00 BP 121 / 86; Pulse 70; Resp 18; Pulse Ox 100% on R/A; vg1 19:00 BP 120 / 88; Pulse 64; Resp 16; Pulse Ox 100% on R/A; vg1 20:00 BP 110 / 82; Pulse 68; Resp 16; Pulse Ox 100% on R/A; vg1 21:00 BP 127 / 97; Pulse 82; Resp 18; Pulse Ox 100% on R/A; vg1 11:27 Body Mass Index 36.88 (116.57 kg, 177.80 cm) iw MDM: 12:11 Patient medically screened. cp 12:30 Differential diagnosis: acute myocardial infarction, chest wall pain, pleurisy, cp pneumonia, pneumothorax, pulmonary embolus, stable angina, thoracic aortic disection, unstable angina. 13:10 The patient was given aspirin in the Emergency Department. cp 13:10 Data reviewed: vital signs, nurses notes, lab test result(s), EKG, radiologic studies, cp plain films. Test interpretation: by ED physician or midlevel provider: ECG, plain radiologic studies. Counseling: I had a detailed discussion with the patient and/or guardian regarding: the historical points, exam findings, and any diagnostic results supporting the discharge/admit diagnosis, lab results, radiology results, the need for further work-up and treatment in the hospital. Physician consultation: Clarence Soto MD was called at 13:10, was contacted at 13:10, regarding admission, to the telemetry unit. patient's condition. 08/03 12:09 Order name: Basic Metabolic Panel; Complete Time: 13:02 cp 08/03 12:09 Order name: CBC with Diff; Complete Time: 13:02 cp 08/03 12:09 Order name: LFT's; Complete Time: 13:02 cp 08/03 12:09 Order name: Magnesium; Complete Time: 13:02 cp 08/03 12:09 Order name: NT PRO-BNP; Complete Time: 13:02 cp 08/03 12:09 Order name: PT-INR; Complete Time: 13:02 cp 08/03 12:09 Order name: Troponin (emerg Dept Use Only); Complete Time: 13:02 cp 08/03 13:02 Interpretation: Within normal limits: TROPED < 0.02. cp 08/03 12:11 Order name: COVID-19 : Document "Date of Symptom Onset" if Symptomatic. cp 08/03 15:29 Order name: Troponin I EDOH 08/03 15:29 Order name: Lipid Profile EDOH 08/03 19:45 Order name: COVID-19 : Document "Date of Symptom Onset" if Symptomatic. vg1 08/03 20:25 Order name: CORONAVIRUS EDOH 08/03 20:51 Order name: Troponin I EDOH 08/03 21:12 Order name: SARS-COV-2 RT PCR EDOH 08/03 12:09 Order name: XRAY Chest (1 view); Complete Time: 13:02 cp 08/03 12:09 Order name: EKG; Complete Time: 12:10 cp 08/03 12:09 Order name: Cardiac monitoring; Complete Time: 12:33 cp 08/03 12:09 Order name: EKG - Nurse/Tech; Complete Time: 12:33 cp 08/03 12:09 Order name: IV Saline Lock; Complete Time: 12:33 cp 08/03 12:09 Order name: Labs collected and sent; Complete Time: 12:33 cp 08/03 12:09 Order name: O2 Per Protocol; Complete Time: 12:33 cp 08/03 12:09 Order name: O2 Sat Monitoring; Complete Time: 12:33 cp 08/03 12:11 Order name: Blood Pressure Recheck: bilateral upper extremity; Complete Time: 12:56 cp 08/03 14:06 Order name: CONS Physician Consult EDOH EC:12 Rate is 79 beats/min. Rhythm is regular. TX interval is normal. QRS interval is normal. cp QT interval is normal. T waves are Inverted in leads III, aVR. Interpreted by me. Reviewed by me. Administered Medications: 12:32 Drug: Aspirin Chewable Tablet 324 mg Route: PO; ll1 13:02 Follow up: Response: No adverse reaction; RASS: Alert and Calm (0) ll1 12:32 Drug: morphine 2 mg {Note: RASS 0.} Route: IVP; Site: right antecubital; ll1 13:02 Follow up: Response: No adverse reaction; Pain is decreased; RASS: Alert and Calm (0) ll1 Disposition: 08/03/20 13:15 Hospitalization ordered by Clarence Soto for Observation. Preliminary diagnosis is Chest pain, unspecified. - Bed requested for Telemetry/MedSurg (observation). - Status is Observation. vg1 - Condition is Stable. - Problem is new. - Symptoms have improved. Addendum: 08/05/2020 07:05 Co-signature as Attending Physician, Willem Soto MD. r n Signatures: Dispatcher [employer] EDMS Jyoti Harris Irene, RN RN iw Nieto, Roman, MD MD rn Page, Corey, PA PA Audrey Faust RN GRACIA cg Sarina Henriquez RN RN 1 Apolinar Allen RN RN 1 Corrections: (The following items were deleted from the chart) 08/03 12:12 11:45 Chest Pa And Lat (2 Views)+[email or web address] ordered. EDOH EDOH 14:12 13:15 Hospitalization Ordered by Clarence Soto MD for Observation. Preliminary bd diagnosis is Chest pain, unspecified. Bed requested for Telemetry/MedSurg (observation). Status is Observation. Condition is Stable. Problem is new. Symptoms have improved. cp 21:22 14:12 08/03/2020 13:15 Hospitalization Ordered by Clarence Soto MD for Observation. cg Preliminary diagnosis is Chest pain, unspecified. Bed requested for [facility] ER HOLD. Status is Observation. Condition is Stable. Problem is new. Symptoms have improved. bd 21:49 21:22 08/03/2020 13:15 Hospitalization Ordered by Clarence Soto MD for Observation. vg1 Preliminary diagnosis is Chest pain, unspecified. Bed requested for Telemetry/MedSurg (observation). Status is Observation. Condition is Stable. Problem is new. Symptoms have improved. cg
--- NOTE | 2020-08-03 14:11 | P.HP ---
Certification for Inpatient Patient admitted to: Observation With expected LOS: <2 Midnights Practitioner: I am a practitioner with admitting privileges, knowledge of patient current condition, hospital course, and medical plan of care. Services: Services provided to patient in accordance with Admission requirements found in Title 42 Section 412.3 of the Code of Federal Regulations Patient History Date of Service: 08/03/20 Reason for admission: Chest pain, ACD rule out History of Present Illness: 44yo M, PMH: NOEMI, migraines who presents to the ED due to severe chest pain. Pain began when he was in bed last night. He was unable to get comfortable and was tossing and turning. He was eventually able to get temporary relief lying in a position in a certain direction. However the pain continued with intermittent worsening. At worst it was a 8/10. Described as being squeezed from the front and back. Some slight radiation to the left shoulder. He denies any recent illness, he does report he was helping a family member move furniture yesterday and Pulled his left shoulder". No recent changes in medications, no recent over the counter medications taking. Nothing in particular seems to worsen the chest pressure. He reports he had a similar episode in 2017, and underwent cardiac workup with a stress test with Dr. Corrales in his office, and was negative. In the ED, EKG was negative for acute ischemic changes, and initial troponin was negative. Lab work was otherwise within normal limits. CXR without acute process. Home Medications: Cetirizine HCl [Zyrtec] 1 08/03/20 Topiramate [Trokendi Xr] 08/03/20 - Past Medical/Surgical History -: NOEMI on CPAP -: Migraines Past Surgical History: Patient denies surgical history - Family History Family History: Reviewed- Non-Contributory (Cousin with coronary artery disease at age 45) - Social History Smoking Status: Never smoker Alcohol use: No Place of Residence: Home Review of Systems 10-point ROS is otherwise unremarkable Physical Examination - Physical Exam General: Alert, In no apparent distress, Oriented x3 HEENT: Atraumatic, PERRLA, Mucous membr. moist/pink, EOMI, Sclerae nonicteric Neck: Supple, 2+ carotid pulse no bruit, No LAD, Without JVD or thyroid abnormality Respiratory: Clear to auscultation bilaterally, Normal air movement Cardiovascular: Regular rate/rhythm, Normal S1 S2 Gastrointestinal: Normal bowel sounds, No tenderness Musculoskeletal: No tenderness (on palpation of chest) Integumentary: No rashes Neurological: Normal speech, Normal affect - Studies Laboratory Data (last 24 hrs) 08/03/20 11:20: PT 11.3, INR 0.98 08/03/20 11:20: WBC 7.40, Hgb 15.1, Hct 44.0, Plt Count 277 08/03/20 11:20: Sodium 141, Potassium 3.6, BUN 15, Creatinine 1.00, Glucose 97, Magnesium 2.3, Total Bilirubin 0.5, AST 14 L, ALT 38, Alkaline Phosphatase 113 Microbiology Data (last 24 hrs): 08/03/20 13:27 Nasopharnyx Coronavirus COVID-19 PCR - Final Assessment and Plan - Advance Directives Does patient have a Living Will: Yes Does patient have a Durable POA for Healthcare: No Physician Review Additional Text: Problem List: Chest pressure, concern for ACS NOEMI Migraines -EKG and initial trop negative -obs, trend troponin, nitro for pain; ACS r/o -ASA, beta-geronimo, statin -telemetry ordered -consult cardiology given presentation -continue home medication for migraines -pt's to bring in, need to confirm VTE: lovenox Code: Full Dispo: Anticipate discharge home tomorrow Time Spent Managing Pts Care (In Minutes): 60
[2020-08-03] MEDS ORDERED: NITROGLYCERIN 0.4 MG/TAB SL PRN (14:21)
[2020-08-03] MEDS ORDERED: MORPHINE 2 MG/ML SYR IV PRN (14:21)
[2020-08-03] MEDS: ENOXAPARIN 40 MG/0.4 ML SQ SCH (15:00)
[2020-08-03 15:28] LABS: HDL Cholesterol 62 mg/dL (40-60); LDL Cholesterol, Calculated 77 (<130); Troponin I < 0.02 ng/mL (0.0-0.045)
[2020-08-03] MEDS: ACETAMINOPHEN 500 MG TAB PO PRN (15:42)
[2020-08-03] MEDS ORDERED: ENOXAPARIN 40 MG/0.4 ML SQ ONE (15:52)
[2020-08-03] MEDS ORDERED: ACETAMINOPHEN 500 MG TAB ONE (15:58)
[2020-08-03 17:27] VITALS: BMI 35.8
--- NOTE | 2020-08-03 19:48 | CON ---
Date of Consultation: 08/03/2020 Reason For Consultation: Chest pain. History Of Present Illness: A 44-year-old male with no medical history, presented with chest pain, s tarted yesterday while in bed. Describes it as a dull ache, goes to the back and went away. This mo rning had another episode. He went to see his primary care doctor, who asked him to come to the [facility] room. Past Medical History: None. Medications: None. Allergies: NO KNOWN DRUG ALLERGIES. Family History: No premature coronary artery disease, cancer. Social History: Does not smoke or drink. Does not use any drugs. Review of Systems: All systems reviewed and they were negative except for what is mentioned in the HPI. Physical Examination: Vital Signs: Temperature is 98.4, pulse is 80, breathing at 16, blood pressure 105/73, saturating 98 % on room air. General: Pleasant young male, in no apparent distress. Head and Neck: Pupils are equal, reactive to light. Intact eye movements. No JVD. No cervical lym phadenopathy. Neck is supple. Thyroid is not enlarged. Lungs: Clear to auscultation bilaterally. No rhonchi, rales, or crackles. No accessory muscle use. Heart: Regular rate and rhythm. No extra sounds. Abdomen: Soft, nontender. Bowel sounds positive. No organomegaly. No rigidity or rebound. Extremities: No edema, clubbing, or cyanosis. Skin: No rash. Neurologic: Alert, awake. No acute focal deficits appreciated. Investigations: Sodium 141, creatinine 1.0. Troponin less than 0.02 x2. LDL cholesterol 77, HDL ch olesterol is 62, hemoglobin is 15.1. Assessment/plan: Chest pain. The patient's first cousin had triple bypass surgery recently early in life. The patient is concerned. Pain is atypical. EKG is normal. Two sets of cardiac enzymes are negative. Observe overnight. Place, check D-dimer, and if it is elevated, recommend CT. Otherwise , if D-dimer is negative and troponins are negative, then the patient can be released and outpatient stress test. Thank you for the consult. /RAJANI Voice ID: [id number] Report ID: [id number]
[2020-08-03] MEDS ORDERED: Topiramate [Trokendi Xr] 100 MG Cap.Er.24h PO SCH (21:00)
[2020-08-03] MEDS ORDERED: ATORVASTATIN 20 MG TAB PO SCH (21:00)
[2020-08-03] MEDS: METOPROLOL TAR 25 MG TAB PO SCH (22:21)
[2020-08-04 03:13] LABS: Absolute Lymphocytes (CBC) 3.3 K/uL (0.7-4.9); Basophils % 0.7 % (0-1.3); Hematocrit 40.4 % (39.6-49.0); Lymphocytes % 41.6 % (15.3-44.8); MPV 8.3 fL (7.6-11.3); RBC Red Blood Cell Count 4.46 M/uL (4.33-5.43)
[2020-08-04] MEDS ORDERED: ASPIRIN EC 81 MG TAB PO SCH (09:00)
[2020-08-04] MEDS: METOPROLOL TAR 25 MG TAB PO SCH (09:38)
[2020-08-04] MEDS: ENOXAPARIN 40 MG/0.4 ML SQ SCH (09:42)
[2020-08-04 11:57] VITALS: BP 100/72; TEMP 97.3
--- NOTE | 2020-08-04 12:39 | P.DS ---
Admission Date: 08/03/20 Discharge Date: 08/04/20 Disposition: ROUTINE DISCHARGE Discharge Condition: FAIR Reason for Admission: Chest pain, ACD rule out Consultations: Cardiology - Problems (1) Chest pain Current Visit: Yes Status: Acute (2) Obese Current Visit: Yes Status: Acute (3) Obstructive sleep apnea Current Visit: Yes Status: Acute Brief History of Present Illness: 44-year-old gentleman with a history of obstructive sleep apnea, migraine headaches came to the emergency department with a complaint of chest pain occurred at rest, rated at severe. His initial troponin in the ED negative. EKG did not show acute ischemic changes. Chest x-ray unremarkable. Patient reports a similar episode in 2017 and had a nuclear stress test done which was negative. Patient was placed under observation for ACS rule out. Hospital Course: Patient placed under observation on the medical floor. Troponin trended came back negative. He was seen and evaluated by cardiology Dr. Doran who recommended to check D-dimer which was negative. He was put on aspirin, Lipitor and beta-geronimo during the hospital stay. Dr. Doran recommend outpatient stress test. Case discussed with Dr. Corrales will see patient in his office tomorrow for arrangement for stress test. He is discharged with aspirin and lipitor to be taken daily. Vital Signs/Physical Exam: Temp Pulse Resp BP Pulse Ox 97.3 F 72 16 100/72 98 08/04/20 11:56 08/04/20 11:56 08/04/20 11:56 08/04/20 11:56 08/04/20 11:56 General: Alert, In no apparent distress, Oriented x3 Neck: JVD not distended Respiratory: Clear to auscultation bilaterally, Normal air movement Cardiovascular: No edema, Regular rate/rhythm, Normal S1 S2, No murmurs Gastrointestinal: Soft and benign, No tenderness Musculoskeletal: No swelling Integumentary: No rashes Neurological: Other (No focal motor deficit.) Laboratory Data at Discharge: WBC 8.00 K/uL (4.3-10.9) 08/04/20 02:53 Hgb 13.9 g/dL (13.6-17.9) 08/04/20 02:53 Hct 40.4 % (39.6-49.0) 08/04/20 02:53 Plt Count 270 K/uL (152-406) 08/04/20 02:53 PT 11.3 SECONDS (9.5-12.5) 08/03/20 11:20 INR 0.98 08/03/20 11:20 Sodium 141 mmol/L (136-145) 08/03/20 11:20 Potassium 3.6 mmol/L (3.5-5.1) 08/03/20 11:20 BUN 15 mg/dL (7-18) 08/03/20 11:20 Creatinine 1.00 mg/dL (0.55-1.3) 08/03/20 11:20 Glucose 97 mg/dL (74-106) 08/03/20 11:20 Magnesium 2.3 mg/dL (1.8-2.4) 08/03/20 11:20 Total Bilirubin 0.5 mg/dL (0.2-1.0) 08/03/20 11:20 AST 14 U/L (15-37) L 08/03/20 11:20 ALT 38 U/L (12-78) 08/03/20 11:20 Alkaline Phosphatase 113 U/L (45-117) 08/03/20 11:20 Troponin I < 0.02 ng/mL (0.0-0.045) 08/04/20 02:53 Triglycerides 48 mg/dL (<150) 08/03/20 14:57 Cholesterol 149 mg/dL (<200) 08/03/20 14:57 HDL Cholesterol 62 mg/dL (40-60) H 08/03/20 14:57 Cholesterol/HDL Ratio 2.40 08/03/20 14:57 Home Medications: Cetirizine HCl [Zyrtec] 1 08/03/20 Topiramate [Trokendi Xr] 08/03/20 Aspirin [Aspirin EC 81 MG] 81 mg PO DAILY #30 tablet. 08/04/20 Atorvastatin Calcium [Lipitor] 10 mg PO BEDTIME #30 tab 08/04/20 Nitroglycerin [Nitrostat*] 0.4 mg SL UD PRN #30 tab 08/04/20 New Medications: Aspirin [Aspirin EC 81 MG] 81 mg PO DAILY #30 tablet. Atorvastatin Calcium [Lipitor] 10 mg PO BEDTIME #30 tab Nitroglycerin [Nitrostat*] 0.4 mg SL UD PRN #30 tab PRN Reason: Pain Scale 2-4 (Mild) Physician Discharge Instructions: Dr. Corrales expect you in his office at 1 pm tomorrow 08/05/2020. Diet: AHA Activity: Ad albaro Followup: Esteban Corrales MD [ACTIVE - CAN ADMIT] - 1 Day Jaye Viramontes FNPC [Primary Care Provider] - 1-2 Weeks
[2020-08-04 13:27] VITALS: O2SAT 86
[2020-08-04] MEDS: ACETAMINOPHEN 500 MG TAB PO PRN (13:44)
--- NOTE | 2020-08-04 23:28 | PN ---
Seen by Dr. Doran for chest pain. The patient is 44 years old. He was admitted to Dr. Werner's ser vice with chest pain. He has a strong family history of heart disease. Otherwise, no real cardiac r isk factors. He had a normal workup including troponin, EKGs, x-rays. The patient was anxious to go home. Case was discussed with Dr. Werner. We are comfortable with him going home. He is pain-free today, but I will have him come to the office in the very near future and get him set up for an outp atient stress test. I think he should have an MPI. MARY/RAJANI Voice ID: [id number] Report ID: [id number]
--- NOTE | 2020-08-05 00:02 | EKG ---
Test Date: 2020-08-03 Test Time: 11:54:[address] Judge: ALKA MEASUREMENT RESULTS: Intervals: Rate: 79 DC: 158 QRSD: 94 QT: 402 QTc: 460 [place]: P: 52 DC: 158 QRS: -11 T: 19 INTERPRETIVE STATEMENTS: Normal sinus rhythm Normal ECG Compared to ECG 08/03/2020 11:38:19 Left ventricular hypertrophy no longer present Electronically Signed On 08-04-20 23:58:49 BIODIESEL PROCESSING TECHNICIAN by Esteban Corrales
--- NOTE | 2020-08-05 00:03 | EKG ---
Test Date: 2020-08-03 Test Time: 11:38:19 Hard Hat Diver: JABARI MEASUREMENT RESULTS: Intervals: Rate: 80 SD: 150 QRSD: 88 QT: 376 QTc: 433 [place]: P: 34 SD: 150 QRS: -25 T: 25 INTERPRETIVE STATEMENTS: Normal sinus rhythm Minimal voltage criteria for LVH, may be normal variant Borderline ECG Compared to ECG 12/03/2018 14:37:05 No significant changes Electronically Signed On 08-04-20 23:58:51 HORSESHOER by Esteban Corrales
== END 2020-08-04 15:40 | disposition home or self-care (01) ==
LOC: ER 11:17 → ERHOLD 14:09 → 4TH 21:44
PROVIDERS: ADMIT Hospitalist; ATTEND Internal Medicine
DX: R07.89 Other chest pain (principal); G47.33 Obstructive sleep apnea (adult) (pediatric); G43.909 Migraine, unspecified, not intractable, without status migrainosus; E66.9 Obesity, unspecified; Z68.36 Body mass index [BMI] 36.0-36.9, adult; Z87.891 Personal history of nicotine dependence; Z91.018 Allergy to other foods; Z82.49 Family history of ischemic heart disease and other diseases of the circulatory system
CPT/HCPCS: 93005 ×2; 85025 ×2; 80048; 36415 ×2; 83735; 85610; 80061; 85379; 80076; 84484 ×4; 83880; 71045; 94760 ×2; 96374; 99285; U0003; J1650 ×2; J2270 ×2; G0378 ×3; U0002

== ENCOUNTER 2020-08-07 06:49 | Day surgery (SDC) | payer BC ==
[2020-08-07] MEDS ORDERED: LIDOCAINE 1% 20 ML MDV ONE (06:57)
[2020-08-07] MEDS ORDERED: HEPA 1000U/500MLS 1,000 UNIT/500 ML BAG IV ONE (06:57)
[2020-08-07] MEDS ORDERED: NA CHLORIDE 0.9% 500 ML ONE (07:13)
[2020-08-07] MEDS ORDERED: MIDAZOLAM HCL 2 MG/2 ML INJ ONE ×2 (07:34→07:52)
[2020-08-07] MEDS ORDERED: NITROGLYCERIN 100 MCG/ML SYR (for cath lab use only) IV ONE (07:36)
[2020-08-07] MEDS ORDERED: NITROGLYCERIN/D5W 0 MG/0 ML BTL IV ONE (07:36)
[2020-08-07] MEDS ORDERED: NA CHLORIDE 0.9% 0 ML ONE (07:36)
[2020-08-07] MEDS ORDERED: FENTANYL CITR 100 MCG/2 ML ONE (07:36)
[2020-08-07] MEDS ORDERED: ATROPINE SULF 1 MG/10 ML SYR IV ONE (07:36)
[2020-08-07 08:21] VITALS: TEMP 97.4
[2020-08-07 10:54] VITALS: BP 120/73; O2SAT 98
--- NOTE | 2020-08-07 10:58 | OP ---
Surgeon: Esteban Corrales MD Stitch Wheeler: Mr. Sales. The patient will remain in the hospital for 2 hours of bedrest. He will go home after that. I will see him in the office in 2 weeks. Procedures Performed: Left heart catheterization and selective coronary arteriogram. Indication: Unstable angina, very strong family history of heart disease and dyslipidemia, multiple episodes of chest pain, multiple admissions to the hospital. Description Of Procedure: The patient was brought to the geophysical laboratory supervisor today as an outpatient, prepped an d draped in the routine sterile fashion, and given Versed and fentanyl for sedation. A 6-Sudanese graham th was introduced in the right common femoral artery successfully using the Seldinger technique and 1 0 cc of xylocaine. Olga catheter left and right were used to cannulate the left main and right ma in respectively. He had perfectly normal coronary arteries. Angiography in the groin was normal. A t last Angio-Seal was used to close the case successfully. There were no complications. Blood Loss: 5 mL. Postoperative Diagnosis: Chest pain. Normal coronary arteries. Plan: Plan is for medical therapy. Anesthesia: Total conscious sedation was 45 minutes. MARY/RAJANI Voice ID: [id number] Report ID: [id number]
== END 2020-08-07 09:53 | disposition home or self-care (01) ==
LOC: CCL 06:49
DX: R07.9 Chest pain, unspecified (principal); Z20.822 Contact with and (suspected) exposure to COVID-19; Z82.49 Family history of ischemic heart disease and other diseases of the circulatory system
CPT/HCPCS: 36415; 85730; 93454; C1893; C1760; J2250 ×2; J3010; J7040; J1644; J0583

== ENCOUNTER 2020-08-07 18:18 | Emergency (ER) | payer BC ==
--- NOTE | 2020-08-07 21:10 | RAD REPORT ---
EXAM DESCRIPTION: US - Lower Extremity Artery [employer] - 08/07/2020 8:57 pm CLINICAL HISTORY: r/o pseudoaneurysm Pain and swelling right lower extremity COMPARISON: No comparisonsNo comparisons FINDINGS: Triphasic waveforms are seen throughout the visualized right lower extremity arterial syst em. No pseudoaneurysm visualized.
--- NOTE | 2020-08-07 21:23 | ER ---
Nurse's Notes [facility] Name: Michael Bailon Age: 44 yrs Sex: Male : 1975 Arrival Date: 08/07/2020 Time: 18:20 Bed 5 Private MD: Jaye Viramontes Diagnosis: Right groin pain;Procedural pain Presentation: 08/07 18:26 Chief complaint: Patient states: R groin pain for 1.5 hours. Had heart cath through R ll1 groin this morning. noticed swelling to R groin. His doctor sent him in for eval. Coronavirus screen: Client denies travel out of the [place] in the last 14 days. At this time, the client does not indicate any symptoms associated with coronavirus-19. Ebola Screen: Patient denies travel to an Ebola-affected area in the 21 days before illness onset. Initial Sepsis Screen: Does the patient meet any 2 criteria? HR > 90 bpm. No. Patient's initial sepsis screen is negative. Does the patient have a suspected source of infection? Yes: Skin breakdown/wound. Risk Assessment: Do you want to hurt yourself or someone else? Patient reports no desire to harm self or others. Onset of symptoms was August 07, 2020. 18:26 Method Of Arrival: Ambulatory ll1 18:26 Acuity: YARA 2 ll1 Historical: - Allergies: 18:28 Cantaloupe; ll1 18:28 melons; ll1 18:28 watermelon flavor (bulk); ll1 - PMHx: 18:28 Migraines; Sleep Apnea; High Cholesterol; ll1 - PSHx: 18:28 heart cath; ll1 - Immunization history:: Flu vaccine is up to date. - Social history:: Smoking status: Patient denies any tobacco usage or history of. Screenin:42 Abuse screen: Denies threats or abuse. Nutritional screening: No deficits noted. jd3 Tuberculosis screening: No symptoms or risk factors identified. Fall Risk Ambulatory Aid- None/Bed Rest/Nurse Assist (0 pts). Gait- Normal/Bed Rest/Wheelchair (0 pts) Mental Status- Oriented to own ability (0 pts). Total Maya Fall Scale indicates No Risk (0-24 pts). Assessment: 18:37 General: Appears in no apparent distress. uncomfortable, Behavior is calm, cooperative, jd3 appropriate for age. Pain: Complains of pain in groin Quality of pain is described as pressure, sharp, tender. Neuro: Level of Consciousness is awake, alert, obeys commands, Oriented to person, place, time, situation. Cardiovascular: Denies chest pain, Capillary refill < 3 seconds Patient's skin is warm and dry. Respiratory: Airway is patent Respiratory effort is even, unlabored, Respiratory pattern is regular, symmetrical, Denies cough, shortness of breath. GI: Abdomen is round non-distended, Patient currently denies diarrhea, nausea, vomiting. : No signs and/or symptoms were reported regarding the genitourinary system. EENT: No signs and/or symptoms were reported regarding the EENT system. Derm: Skin is intact, Skin is dry, Skin is normal, Skin temperature is warm. Musculoskeletal: Circulation, motion, and sensation intact. Range of motion: intact in all extremities, Swelling present in right groin. 19:21 Reassessment: Patient appears in no apparent distress at this time. Patient and/or mg2 family updated on plan of care and expected duration. Pain level reassessed. Patient is alert, oriented x 3, equal unlabored respirations, skin warm/dry/pink. patient says he " my groin is hurrting but no bleeding noted". 20:31 Reassessment: ultrasound at bedside. mg2 21:40 Reassessment: Patient appears in no apparent distress at this time. Patient is alert, mg2 oriented x 3, equal unlabored respirations, skin warm/dry/pink. Vital Signs: 18:26 BP 115 / 91; Pulse 92; Resp 17; Temp 98.7; Pulse Ox 99% ; Weight 116.57 kg; Height 5 ll1 ft. 10 in. (177.80 cm); Pain 8/10; 19:22 BP 114 / 85; Pulse 89; Resp 18; Pulse Ox 100% on R/A; mg2 21:08 BP 121 / 82; Pulse 80; Resp 18; Temp 98.5; Pulse Ox 100% on R/A; mg2 18:26 Body Mass Index 36.88 (116.57 kg, 177.80 cm) ll1 ED Course: 18:20 Patient arrived in ED. mr 18:20 Jaye Viramontes is Private Physician. mr 18:28 Triage completed. ll1 18:28 Arm band placed on Patient placed in an exam room, on a stretcher. ll1 18:37 Ankur Lu RN is Primary Nurse. jd3 18:42 Patient has correct armband on for positive identification. Bed in low position. Call jd3 light in reach. Side rails up X 1. Pulse ox on. NIBP on. 19:28 Manuel Cast MD is Attending Physician. ps1 20:31 No provider procedures requiring assistance completed. Patient did not have IV access mg2 during this emergency room visit. 20:56 [employer] In Process Unspecified. EDMS 21:22 Esteban Corrales MD is Referral Physician. ps1 Administered Medications: No medications were administered Outcome: 21:23 Discharge ordered by . ps1 21:40 Discharged to home ambulatory. mg2 21:40 Condition: stable 21:40 Discharge instructions given to patient, Instructed on discharge instructions, follow up and referral plans. Demonstrated understanding of instructions, follow-up care. 21:41 Patient left the ED. mg2 Signatures: Dispatcher [employer] [facility] Mel Quinonez mr Ankur Lu, RN RN jd3 Manuel Cast MD MD ps1 Deyvi Anand RN RN mg2 Apolinar Allen RN RN ll1 Corrections: (The following items were deleted from the chart) 18:50 18:37 Musculoskeletal: Circulation, motion, and sensation intact. Range of motion: jd3 intact in all extremities, jd3
--- NOTE | 2020-08-07 21:24 | EDPHYS ---
Physician Documentation [facility] Name: Michael Bailon Age: 44 yrs Sex: Male : 1975 Arrival Date: 08/07/2020 Time: 18:20 Bed 5 Private MD: Jaye Viramontes ED Physician Manuel Cast HPI: 08/07 19:48 This 44 yrs old Male presents to ER via Ambulatory with complaints of Post ps1 Surgical Pain, Dizziness. 19:48 Patient with heart cath today. Started having right inguinal pain at site of vascular ps1 access. [facility]. No obvious hematoma. Has some swelling to the area. Had an episode that he had sharp pain at the site and got dizzy when trying to walk it off. Symptoms have since resolved. . Historical: - Allergies: 18:28 Cantaloupe; ll1 18:28 melons; ll1 18:28 watermelon flavor (bulk); ll1 - PMHx: 18:28 Migraines; Sleep Apnea; High Cholesterol; ll1 - PSHx: 18:28 heart cath; ll1 - Immunization history:: Flu vaccine is up to date. - Social history:: Smoking status: Patient denies any tobacco usage or history of. ROS: 19:48 Constitutional: Negative for fever, chills, and weight loss, Eyes: Negative for injury, ps1 pain, redness, and discharge, Cardiovascular: Negative for chest pain, palpitations, and edema, Respiratory: Negative for shortness of breath, cough, wheezing, and pleuritic chest pain, Abdomen/GI: Negative for abdominal pain, nausea, vomiting, diarrhea, and constipation, Skin: Negative for injury, rash, and discoloration, Neuro: Negative for headache, weakness, numbness, tingling, and seizure. 19:48 MS/extremity: Positive for contusion, pain, swelling, of the right femoral area. Exam: 19:48 Constitutional: This is a well developed, well nourished patient who is awake, alert, ps1 and in no acute distress. Head/Face: Normocephalic, atraumatic. Eyes: Pupils equal round and reactive to light, extra-ocular motions intact. Lids and lashes normal. Conjunctiva and sclera are non-icteric and not injected. Cardiovascular: Regular rate and rhythm. No gallops, murmurs, or rubs. Normal PMI, no JVD. No pulse deficits. Respiratory: Lungs have equal breath sounds bilaterally, clear to auscultation and percussion. No rales, rhonchi or wheezes noted. No increased work of breathing, no retractions or nasal flaring. Abdomen/GI: Soft, non-tender, with normal bowel sounds. No distension or tympany. No guarding or rebound. No evidence of tenderness throughout. Neuro: Awake and alert, GCS 15, oriented to person, place, time, and situation. Cranial nerves II-XII grossly intact. Sensory grossly intact. 19:48 Musculoskeletal/extremity: Extremities: grossly normal except: noted in the right femoral area: pain, tenderness, There is no evidence of thrill. Vital Signs: 18:26 BP 115 / 91; Pulse 92; Resp 17; Temp 98.7; Pulse Ox 99% ; Weight 116.57 kg; Height 5 ll1 ft. 10 in. (177.80 cm); Pain 8/10; 19:22 BP 114 / 85; Pulse 89; Resp 18; Pulse Ox 100% on R/A; mg2 21:08 BP 121 / 82; Pulse 80; Resp 18; Temp 98.5; Pulse Ox 100% on R/A; mg2 18:26 Body Mass Index 36.88 (116.57 kg, 177.80 cm) ll1 MDM: 19:57 Patient medically screened. ps1 21:23 Differential diagnosis: Pseudoaneurysm, Contusion, MSK pain, and others. Data reviewed: ps1 vital signs, nurses notes, radiologic studies, and as a result, I will discharge patient. Counseling: I had a detailed discussion with the patient and/or guardian regarding: the historical points, exam findings, and any diagnostic results supporting the discharge/admit diagnosis, radiology results, the need for outpatient follow up, to return to the emergency department if symptoms worsen or persist or if there are any questions or concerns that arise at home. 08/07 19:44 Order name: [employer]; Complete Time: 21:22 ps1 Administered Medications: No medications were administered Disposition: 08/07/20 21:23 Discharged to Home. Impression: Right groin pain, Procedural pain. - Condition is Stable. - Discharge Instructions: Contusion. - Medication Reconciliation Form, Thank You Letter, Antibiotic Education, Prescription Opioid Use form. - Follow up: Esteban Corrales MD; When: 48 Hours; Reason: Further diagnostic work-up, Recheck today's complaints, Continuance of care, Re-evaluation by your physician. Follow up: Emergency Department; When: As needed; Reason: Fever > 102 F, Worsening of condition. - Problem is new. - Symptoms are unchanged. Signatures: Dispatcher [employer] [facility]PA Manuel Cast MD MD ps1 Deyvi Anand RN RN mg2 Apolinar Allen RN RN ll1 Corrections: (The following items were deleted from the chart) 21:41 21:23 08/07/2020 21:23 Discharged to Home. Impression: Right groin pain; Procedural mg2 pain. Condition is Stable. Forms are Medication Reconciliation Form, Thank You Letter, Antibiotic Education, Prescription Opioid Use. Follow up: Esteban Corrales; When: 48 Hours; Reason: Further diagnostic work-up, Recheck today's complaints, Continuance of care, Re-evaluation by your physician. Follow up: Emergency Department; When: As needed; Reason: Fever > 102 F, Worsening of condition. Problem is new. Symptoms are unchanged. ps1
[2020-08-07 22:49] VITALS: O2SAT 100
[2020-08-07 22:50] VITALS: BP 121/82; TEMP 98.5
== END 2020-08-07 21:41 | disposition home or self-care (01) ==
LOC: ER 18:18
DX: G89.18 Other acute postprocedural pain (principal); Z91.018 Allergy to other foods
CPT/HCPCS: 93926; 99283